=== PATIENT | male | born 1970 | race Caucasian/White ===

== ENCOUNTER 2018-01-01 21:58 | Emergency (ER) | payer SELFPAY ==
[~2018-01-01] VITALS: Ht 175.3 cm; Wt 80.0 kg
[2018-01-01 22:57] VITALS: BP 127/78; PULSE 78; RESP 20; TEMP 97.9; O2SAT 99
== END 2018-01-02 00:35 | disposition left against medical advice (07) ==
LOC: NETRI 21:58
DX: Z53.21 Procedure and treatment not carried out due to patient leaving prior to being seen by health care provider (principal)
CPT/HCPCS: 99281

== ENCOUNTER 2018-01-02 09:28 | Emergency (ER) | payer SELFPAY ==
[~2018-01-02] VITALS: Ht 170.2 cm; Wt 63.5 kg
[2018-01-02 09:29] VITALS: BP 127/74; PULSE 80; RESP 18; TEMP 97.4; O2SAT 99
--- NOTE | 2018-01-02 09:45 | PD ---
HPI Chief Complaint: Lump, Cyst, Hernia Time Seen by Provider: 09:32 Travel History International Travel<30 days: No Contact w/Intl Traveler<30days: No Traveled to known affect area: No History of Present Illness HPI Patient is a 47-year-old male presented to emerge from for evaluation of right groin pain. Patient states 3 days ago he lifted a heavy pallet at work when he felt a sharp pain and then noticed a bulge. At its worst the pain is a 7 out of 10, sharp. Pain does improve with rest. Patient denies any dysuria, change in bowel habits or abdominal pain. He denies any redness or warmth to the area. Patient denies any significant past medical history. Symptom onset was sudden, symptoms are moderate in nature. [facility] Past Medical History Medical History: Denies Significant Hx Influenza Vaccination: No Past Surgical History Other Surgery: Yes (sinus) Social History Alcohol Use: No Tobacco Use: Yes Substance Use: No Allergies-Medications (Allergen,Severity, Reaction): Coded Allergies: No Known Allergies (Unverified , 01/01/18) Reported Meds & Prescriptions Reported Meds & Active Scripts Active No Active Prescriptions or Reported Medications Review of Systems Except as stated in HPI: all other systems reviewed are Neg Musculoskeletal: Positive: Pain Physical Exam Narrative GENERAL: Thin, well-developed, alert male. Presenting in no acute distress. SKIN: Warm and dry. HEAD: Atraumatic. Normocephalic. EYES: Pupils equal and round. No scleral icterus. No injection or drainage. ENT: No nasal bleeding or discharge. Mucous membranes pink and moist. NECK: Trachea midline. No JVD. CARDIOVASCULAR: Regular rate and rhythm. RESPIRATORY: No accessory muscle use. Clear to auscultation. Breath sounds equal bilaterally. GASTROINTESTINAL: Abdomen soft, non-tender, nondistended. Hepatic and splenic margins not palpable. Right inguinal hernia, easily reducible, no erythema warmth noted. MUSCULOSKELETAL: Extremities without clubbing, cyanosis, or edema. No obvious deformities. NEUROLOGICAL: Awake and alert. No obvious cranial nerve deficits. Motor grossly within normal limits. Five out of 5 muscle strength in the arms and legs. Normal speech. PSYCHIATRIC: Appropriate mood and affect; insight and judgment normal. Data Data Last Documented VS Vital Signs Date Time Temp Pulse Resp B/P (MAP) Pulse Ox O2 Delivery O2 Flow Rate FiO2 01/02/18 09:29 97.4 80 18 127/74 (91) 99 [facility] Medical Decision Making Medical Screen Exam Complete: Yes Emergency Medical Condition: Yes Interpretation(s) Vital Signs Date Time Temp Pulse Resp B/P (MAP) Pulse Ox O2 Delivery O2 Flow Rate FiO2 01/02/18 09:29 97.4 80 18 127/74 (91) 99 Differential Diagnosis Hernia versus abscess versus lymphadenitis versus incarcerated hernia versus other Narrative Course Patient is well-appearing male presenting for evaluation of right inguinal hernia. Hernia is easily reducible. Patient was given warning signs/strict return precautions. He was advised to return immediately if the hernia did not reduce or if he noticed any redness or warmth to the area. Patient was advised to obtain truss for support. He was encouraged to avoid improper lifting techniques or heavy lifting if possible. Patient was reassured that there were no acute findings at this time and no need for immediate surgical intervention. Patient verbalized understanding of instructions. Patient stable for discharge. Diagnosis Primary Impression: Right inguinal hernia Referrals: [facility] Patient Instructions: General Instructions, Inguinal Hernia (DC) Additional Instructions: Follow-up with a primary doctor Obtain a truss support garment Return to emergency department for any new or worsening symptoms as discussed Med/Other Pt SpecificInfo: No Change to Meds Scripts No Active Prescriptions or Reported Meds Disposition: 01 DISCHARGE HOME Condition: Stable Ying Arrington Jan 02, 2018 09:45
== END 2018-01-02 10:03 | disposition home or self-care (01) ==
LOC: NEPD 09:28
DX: K40.90 Unilateral inguinal hernia, without obstruction or gangrene, not specified as recurrent (principal); Z72.0 Tobacco use
CPT/HCPCS: 99283